=== PATIENT | male | born 1985 | race Caucasian/White ===

== ENCOUNTER 2020-06-06 10:00 | Emergency (ER) | payer SELFPAY ==
[~2020-06-06] VITALS: Ht 182.9 cm; Wt 86.2 kg
[2020-06-06 10:26] VITALS: Ht 182.9 cm; Wt 86.2 kg
[2020-06-06 11:19] LABS: CALCIUM 8.7 mg/dL (8.5-10.1); CARBON DIOXIDE 20.8 mmol/L (21-32); CHLORIDE SERUM 110 mmol/L (98-107); CREATININE SERUM 1.5 mg/dL (0.7-1.3); GFR1 57 mL/min; GLUCOSE SERUM 91 mg/dL (74-106); POTASSIUM SERUM 3.4 mmol/L (3.5-5.1); SODIUM SERUM 145 mmol/L (136-145)
[2020-06-06 11:23] LABS: ALKALINE PHOSPHATASE 125 U/L (46-116); ALT/SGPT 184 U/L (16-63); AST/SGOT 267 U/L (15-37); BILIRUBIN TOTAL 0.19 mg/dL (0.20-1.00); TOTAL PROTEIN, SERUM 6.2 g/dL (6.4-8.2)
[2020-06-06 11:29] LABS: BASOPHIL % 0.1 % (0-2); PLATELET COUNT 202 x10^3mcL (130-400); RED CELL DISTRIBUTION WIDTH 15.8 % (11.5-14.5)
[2020-06-06 11:30] LABS: ALBUMIN 3.2 g/dL (3.4-5.0)
[2020-06-06 12:39] LABS: UA SPECIFIC GRAVITY >=1.030 (1.005-1.035); microscopic required? YES; urine erythrocyte TRACE (NEGATIVE)
[2020-06-06 16:42] LABS: AMPHETAMINE QUAL UR POSITIVE (See below)
[2020-06-06 20:03] VITALS: BP 104/67
== END 2020-06-06 20:03 | disposition home or self-care (01) ==
LOC: ED 10:00
PROVIDERS: Emergency Medicine
DX: F19.10 Other psychoactive substance abuse, uncomplicated (principal); E11.9 Type 2 diabetes mellitus without complications; Z88.6 Allergy status to analgesic agent
CPT/HCPCS: G0480; J2060; J2310; J7030; Q0092